=== PATIENT | male | born 1995 | race Two or more races ===

== ENCOUNTER 2025-01-27 17:17 | Emergency (ER) | payer OTHER, SELFPAY ==
--- NOTE | ~2025-01-27 | XR_ITS ---
CLINICAL HISTORY: left middle finger pain, fracture? 3 view left hand Comparison: None provided Findings: No fracture is seen on the AP and oblique view. On the lateral view, there is a possible small bony fragment seen at the base of a mid phalanx, likely to be the 4th digit. No significant arthritic change. No erosions. No radiopaque foreign body. IMPRESSION: On the lateral view, there is a possible small bony fragment of the base of a mid phalanx concerning for fracture, likely to be the 4th digit. Additional views of the digit is recommended. This document has been electronically signed by: Bhavna Brock MD on 01/27/2025 19:32:43
[2025-01-27 17:45] VITALS: BP 157/99; PULSE 84; RESP 16; TEMP 36.1; O2SAT 97; BMI 43.3
--- NOTE | 2025-01-27 17:47 | ED.EXTPRO ---
HPI - Extremity Problem General Chief complaint: Extremity Injury, Upper Stated complaint: Finger injury Time Seen by Provider: 01/27/25 20:09 Source: patient Mode of arrival: ambulatory Limitations: no limitations History of Present Illness ED Provider: [facility] We[facility] Narrative: 29 yold male presents to the ED for left ring finger pain since yesterday. Patient states while playing basketball yesterday he jammed his finger on all the ball. Patient denies any blunt trauma, falling to ground, head trauma, or any other trauma. Related Data Previous Rx's ?Medication ?Instructions ?Recorded naproxen 500 mg tablet 500 mg PO BID PRN pain #14 tabs 01/27/25 Allergies Allergy/AdvReac Type Severity Reaction Status Date / Time No Known Allergies (No Known Allergy Verified 01/27/25 17:47 Allergies*) Review of Systems Review of Systems: left ring finger pain Yes all other systems are reviewed and are negative Physical Exam Vital Signs: Vital Signs: Last Vital Signs Temp 97.0 F 01/27/25 17:45 Pulse 84 01/27/25 17:45 Resp 16 01/27/25 17:45 BP 157/99 H 01/27/25 17:45 Pulse Ox 97 01/27/25 17:45 O2 Del Method Room Air 01/27/25 17:45 BMI result Body Mass Index 43.3 Const: General: cooperative, healthy appearing, comfortable, no acute distress, well developed, alert, awake and Physically active Orientation/consciousness: patient oriented x3 HEENT: Head: Yes normal to inspection, Yes No palpable skull fracture present, Yes normocephalic, Yes atraumatic and No abrasion Eyes: General: appearance normal, both eyes and all related structures Neck: Neck: Yes normal visual inspection, Yes full ROM, Yes no lymphadenopathy, Yes no meningeal signs, Yes trachea midline, Yes supple, No anterior neck swelling and No tender Chest: Chest palpation & inspection: normal inspection of the chest and normal palpation of entire chest wall Resp: Effort & Inspection: normal respiratory effort and able to speak in complete sentences Auscultation: clear to auscultation bilaterally Cardio: Jugular venous distension: no JVD Heart sounds: S1 normal heart sound present and S2 normal heart sound present GI: Inspection: Yes normal to inspection Palpation (GI): Soft to palpation, not firm, nontender, no guarding and not rigid : General: Yes no CVA tenderness Back/Spine/Pelvis: Back: no CVA tenderness and No back tenderness Skin: General skin exam: no rashes or lesions noted, elasticity normal and turgor normal Neuro: General: patient oriented x3, gait normal, tone normal, moves all extremities, Normal light touch and pain sensation, no meningeal signs, no focal motor deficits and CN's II-XI intact bilaterally Extrem: General: Yes normal to inspection, Yes full ROM and Yes capillary refill normal Hand/finger images:  1. ecchymosis and slight swelling. negative for erythema, deformities, pus discharge, foul odor, or crepitus. rest of extremity is normal. Motor, neuro, and vascular exam is intact. Psych: Appearance: grossly normal, well kempt and not disheveled Course Course Course Narrative: RME: 29-year-old male presents to ED for left middle finger pain since yesterday. Patient was playing basketball then she jammed the finger. On exam patient is able to move the finger no obvious deformity. X-ray ordered. Medical Decision Making Medical Decision Making MDM Narrative: 29-year-old male presents to ED for left 4th finger injury while playing basketball yesterday. Patient denies any other trauma. Patient has complete range of motion of finger without any obvious deformity. Rest of extremity normal vascular motor neuro exam intact. X-ray shows possible may be 4th middle finger fracture. Patient is already in splint. Patient informed to keep splint on finger and given follow-up with hand surgery. Patient explained worrisome signs and informed to return to the ED immediately. Differential Diagnosis Differential Diagnoses: The differential diagnosis associated with the presentation includes (finger fracture) Admission/Observation Consideration of admission/observation: Escalation of care including admission/observation considered Independent Interpretation I performed an independent interpretation of an: Plain X-Ray Radiology Impression Discussion of test interpretation with radiology: I have reviewed the radiologist's reading. Independent Historian Clinical information obtained from an independent historian. History obtained from or confirmed by: Other (patient) Prescription Management I considered prescription management with: Pain Medication Discharge Plan Discharge Clinical Impression: Fracture of finger Patient Disposition: Home, Self-Care Instructions: Finger Fracture (ED) Additional Instructions: Your x-ray shows possible 4th finger middle phalanx fracture. Keep splint on until follow-up with hand surgeon. Return to the ED immediately for any swelling, redness, bluish black discoloration, numbness/tingling, hotness, coldness, or any other concerning symptoms. CLINICAL HISTORY: left middle finger pain, fracture? 3 view left hand Comparison: None provided Findings: No fracture is seen on the AP and oblique view. On the lateral view, there is a possible small bony fragment seen at the base of a mid phalanx, likely to be the 4th digit. No significant arthritic change. No erosions. No radiopaque foreign body. IMPRESSION: On the lateral view, there is a possible small bony fragment of the base of a mid phalanx concerning for fracture, likely to be the 4th digit. Additional views of the digit is recommended. This document has been electronically signed by: Bhavna Brock MD on 01/27/2025 19:32:43 Prescriptions: New naproxen 500 mg tablet 500 mg PO BID PRN (Reason: pain) Qty: 14 0RF Referrals: [facility] [Provider Group, Hand Surgery] - 2 days Referral Note: Possible left 4th middle phalanx fracture Clinical Impression: Fracture of finger Keith Christianson MD [Primary Care Provider, Internal Medicine] - 3 days Referral Note: Possible 4th middle finger fracture Clinical Impression: Fracture of finger Stand Alone Forms: Work/School Release Discharge Date/Time: 01/28/25 05:08 Print Language: Lithuanian
--- OUTSIDE RECORDS SUMMARY | 2025-01-27 20:18 | XMS_ITS | Clinical Summary ---
Author Organization [facility] [address] [place] [address] [place] [address] Phone Care Team Providers Care Machine Iii Coremaker Name Role Phone Keith Christianson MD Primary Care Provider [phone] Allergies No known active allergies Medications naproxen (NAPROSYN) 500 mg tablet Take 1 tablet (500 mg total) by mouth 2 (two) times a day with meals. 28 tablet 01/09/2025 Active Active Problems Problem Noted Date Diagnosed Date Allergic rhinitis 05/29/2006 Encounters Date Type Department Care Team Description 01/09/2025 8:30 AM EDT Office Visit Adult Medicine [address] [phone] Maricel Servin PA Adult general medical examination (Primary Dx); Benign paroxysmal positional vertigo of right ear; Left wrist pain; Erectile dysfunction, unspecified erectile dysfunction type; Vertigo from Last 3 Months Immunizations Name Administration Dates Next Due DTP 12/06/2001, 0,1997, 997,1997 [id number] (Pentacel) 2mo to less than 5yo 1997,1997,1997 Hepatitis B Pediatric (Enger ix B; Recombivax HB) to less than 20 yo 1997,1997,1997 MMR, measles mumps and rubel la Live (Priorix; M-M-R II) 12mo and older 12/06/2001,10/18/1998 OPV 12/06/2001, 0,1997, 997 Tdap Tetanus diptheria acell ular pertussis (Boostrix; Adacel) 7yo and older 03/26/2020 Varicella live (Varivax) 12m o and older 03/09/1998 Surgical History Surgery Date Site/Laterality Comments OTHER SURGICAL HISTORY PROCEDURE: HISTORICAL ARM SURGERY KNEE SURGERY PROCEDURE: HISTORICAL KNEE SURGERY Medical History Medical History Date Comments Allergic rhinitis, cause unspecified DX:Allergic rhinitis, cause unspecified Family History Medical History Relation Name Comments No Known Problems Brother 1 No Known Problems Brother 2 No Known Problems Brother 3 No Known Problems Father No Known Problems Maternal Grandfather Hyperlipidemia Maternal Grandmother Stroke Maternal Grandmother No Known Problems Mother No Known Problems Paternal Grandfather No Known Problems Paternal Grandmother No Known Problems Sister 1 No Known Problems Sister 2 No Known Problems Sister 3 Relation Name Status Comments Brother 1 Alive 2 brothers ages 25 and 20 lives with Dad, healthy Brother 2 Alive Brother 3 Alive Father Alive Maternal Grandfather Maternal Grandmother Alive Mother Alive Paternal Grandfather Paternal Grandmother Sister 1 Alive 1 older sister lives with Dad, healthy Sister 2 Alive 2 sisters ages 18 and 14, live with Mom, healthy Sister 3 Alive Social History Tobacco Use Types Packs/Day Years Used Date Smoking Tobacco: Never Smokeless Tobacco: Never Tobacco Cessation:Counseling Given: Not Answered Alcohol Use Standard Drinks/Week Comments No 0 (1 standard drink = 0.6 oz pur e alcohol) Food Risk Answer Date Recorded Within the past 12 months we worried whether our food would run out before we got money to buy more. Never true 01/02/2025 Within the past 12 months th e food we bought just didn't last and we didn't have money to get more. Never true 01/02/2025 Sex and Gender Information Value Date Recorded Sex Assigned at Male 01/02/2025 11:03 AM EDT Legal Sex Male 5:41 PM EST Gender Identity Male 01/02/2025 11:03 AM EDT Sexual Orientation Straight 01/02/2025 11 :03 AM EDT Obstetrics History Last Filed Vital Signs Vital Sign Reading Time Taken Comments Blood Pressure 132/83 01/09/2025 8:32 AM EDT Pulse 71 01/09/2025 8:32 AM EDT Temperature 36.7 C (98.1 F) 01/09/2025 8:32 AM EDT Respiratory Rate 14 01/09/2025 8:32 AM EDT Oxygen Saturation - - Inhaled Oxygen Concentration - - Weight 136 kg (299 lb) 01/09/2025 8:32 AM EDT Height 175.3 cm (5' 9 ) 01/09/2025 8:32 AM EDT Body Mass Index 44.15 01/09/2025 8:32 AM EDT Plan of Treatment Upcoming Encounters Date Type Department Care Team (Late st Contact Info) Description 01/12/2026 8:30 AM EDT Office Visit Adult Medicine [address] [phone] Keith Christianson MD [address] [place] [id number] Health Maintenance Due Date Last Done Comments COVID-19 Vaccine ( season) 2024 HIV Screening 06/17/2024 Influenza Vaccine (#1) 2025 8, 09/28/2016, 08/06/2015, Additional history exists Depression Screening 01/02/2026 01/02/2025 Social Influencers of Health Screening 01/02/2026 01/02/2025 Cholesterol Screening (Lipid Panel) 03/06/2029 03/06/2024, 03/06/2024 DTaP,Tdap,and Td Vaccines (9 - Td or Tdap) 03/26/2030 03/26/2020, 10/01/2017, 05/01/2008, Additional history exists Hepatitis B Vaccines Completed 1997, 1997, 1997 HIB Vaccines Completed 10/18/1998, 08/23, 1997, Additional history exists IPV Vaccines Completed 12/06/2001, 11/21, 1997, Additional history exists MMR Vaccines Completed 12/06/2001, 10/18/1998 Varicella Vaccines Completed 05/27/2010, 03/09/1998 Hepatitis A Vaccines Completed 06/12/2014, 06/06/20 13 HPV Vaccines Completed 12/16/2014, 07/24, 06/12/2014 Meningococcal ACWY Vaccine Completed 10/01, 06/06/2013, 05/01/2008 Hepatitis C Screening Completed 03/06/2024 Meningococcal B Vaccine Aged Out No l onger eligible based on patient's age to complete this topic Pneumococcal Vaccine: Pediatrics (0 to 5 Years) and At-Risk Patients (6 to 49 Years) Aged Out No longer eligible based on patient's age to complete this topic RSV Immunization Patients Under 20 months Aged Out No longer eligible based on patient's age to complete this topic Procedures Procedure Name Priority Date/Time Associated Diagnosis Comments HEPATITIS C SCREENING Routine 03/06/2024 LIPID PANEL Routine 03/06/2024 from Last 3 Months or Most Recently Relevant to Health Maintenance Results * Hepatitis C Screening (03/06/2024) Hepatitis C Screening abstracted Historical Provider HEALTH MAINTENANCE Final Result * (ABNORMAL) Lipid panel (03/06/2024) LDL/HDL Ratio 4 0 - 4 Triglycerides 97 0 - 150 mg/dL Cholesterol 141 0 - 200 mg/dL HDL 37(A) >=40 mg/dL LDL Cholesterol 85 0 - 100 mg/dL Blood Venous blood specimen / Unknown Historical Provider LAB BLOOD ORDERABLES Mireya l Result from Last 3 Months or Most Recently Relevant to Health Maintenance Insurance [employer] Care Teams Machine Iii Coremaker Relationship Specialty Start Date End Date Keith Christianson MD [address] [place] [id number] PCP - General 11/09/23
== END 2025-01-28 05:08 | disposition home or self-care (01) ==
PROVIDERS: Emergency Provider Internal Medicine; PCP Internal Medicine
DX: S62.603A Fracture of unspecified phalanx of left middle finger, initial encounter for closed fracture (principal); W21.05XA Struck by basketball, initial encounter; Y93.67 Activity, basketball; Y92.310 Basketball court as the place of occurrence of the external cause; Y99.8 Other external cause status
CPT/HCPCS: 73120; 99281; 99283

== ENCOUNTER → 2025-01-27 17:48 | Outpatient (BNV) | payer OTHER, SELFPAY | PROVIDERS: PCP Internal Medicine; Visit Provider Nuclear Medicine | DX: M79.645 Pain in left finger(s) (principal) | CPT/HCPCS: 73120 ==

== ENCOUNTER 2025-02-03 09:46 | Outpatient (AMB) | payer OTHER, SELFPAY ==
[2025-02-03 10:13] VITALS: BMI 43.3
--- NOTE | 2025-02-03 10:13 | A.OFFVIS_ITS ---
Vital Signs 02/03/25 10:13 Height 5 ft 9 in Weight 293 lb BMI 43.3 Intake Visit Reasons: FC - Left Ring Finger Fracture 01/26/25 Intake Note: Stas 29 yr old right hand dominant male,presents today for a fracture care visit for his left ring finger fracture from DOI 01/26/25. Patient states while playing basketball, he jammed his finger on all the ball. Seen at [facility] the following day where xrays were taken, fracture was confirmed and patient was splinted. Currently states he continues to wear his splint. He has been working on his ROM and is doing well. States he has mild pain when bending his finger. Denies numbness, tingling or locking of any finger. Allergies No Known Allergies (No Known Allergies*) Allergy (Verified 02/03/25 10:13) HPI HPI FC - Left Ring Finger Fracture 01/26/25: Details: Stas is a 29 year old right hand dominant man who presents for a left ring finger fracture, from a Basketbal injury, DOI: 01/26/25. He was seen in the ED on 01/27/25 and placed in a finger splint. He says he jammed his finger while playing Basketball. He says he is doing better within the last week. He complains of some pain in his finger, worse with motion. He has been wearing his splint as instructed. He denies any numbness or tingling. 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 Review of Systems Const All systems reviewed & are unremarkable except as noted in HPI and below Physical Exam Vital Signs: BMI result Body Mass Index 43.3 Const General: cooperative, healthy appearing and no acute distress Orientation/consciousness: patient oriented x3 HEENT Head: Yes normocephalic and Yes atraumatic Eyes EOM: EOMs intact bilaterally Resp Effort & Inspection: normal respiratory effort and able to speak in complete sentences Cardio Jugular venous distension: no JVD Skin General skin exam: turgor normal Rashes: no rashes Neuro General: patient oriented x3 Extrem Other: Evaluation of Left Upper Extremity: The patient is alert, oriented, and in no acute distress Sensation is normal to the tips of all digits Cap refill brisk ROM: He can bring his thumb, index, middle, and small fingers closed to a fist and all digits into full extension Mild hyperextension seen at the ring finger DIP joint Good active FDP tendon function No rotational or angular mal-alignment Skin: No lacerations or abrasions or evidence of open fracture General: Most tender over the middle phalanx volar base fracture site Mild swelling and resolving ecchymosis Radiographs: 3 views of the left hand were taken and viewed by me today in clinic. They show a ring finger middle phlalanx avulsion fracture of the volar base, minimally displaced Psych Appearance: grossly normal Affect: normal affect Attitude: cooperative Office Procedures AMB Fracture Care Details: Fracture care [id number] Fracture Billing Code: Fracture Billing Code Assessment & Plan Assessment & Plan (1) Fracture of phalanx of left ring finger: Code(s): S62.605A - Fracture of unspecified phalanx of left ring finger, initial encounter for closed fracture Category: Medical Plan Assessment & Plan: 1. Left ring finger middle phalanx avulsion fracture of volar base, From a Basketball injury, DOI: 01/26/25 I educated him about this condition I discussed operative and non-operative treatment options I recommend we manage this conservatively, and he is in agreement He will Toño-tape splinting of his middle & ring fingers I discussed activity modifications, he is to lift nothing heavier than a cellphone for the next 5 weeks. He is to avoid any falls or heavy impact activities, including ball sports, for the next 5-6 weeks He will perform gentle finger ROM exercises at home He will follow up in 4 weeks for a ROM check, No X-rays unless he has more pain or a new injury Scribed for Vero Randolph MD by Andrew Barker, manager medical writing, on 02/03/25 at 10:20 AM, EST. Orders: Orders XR hand LT min 3V Today M79.642 - Pain in left hand Medications: Discontinued naproxen Discontinued Reason: Patient Completed Course 500 mg PO BID PRN 14 tabs 0RF pain Coding Level of Care Code New Pt Level 3 (65782) Diagnoses Fracture of phalanx of left ring finger S62.605A CPT Codes Fracture Care - Fracture Billing Code: Fracture Billing Code ([id number])
--- OUTSIDE RECORDS SUMMARY | 2025-02-03 10:29 | XMS_ITS | Clinical Summary ---
Author Organization [facility] Address [address] [place] [phone] Phone Care Team Providers Care Compensation Agent Name Role Phone Unavailable Primary Care Provider Unavailabl e Immunizations Immunization Administration Dates Next Due DTaP 5 07/26/1999, 8,1997,04/22 HPV, Quadrivalent 12/16/2014,08/13/2014,06/12/20 14 Hep A, ped/adol 06/12/2014,06/06/2013 Hep B, ped/adol 1997,1997,1997 Hib (PRP-T) 10/18/1998, 8,1997,04/22 IPV 12/15/1999,1997,1997 Influenza Split Preservative Free ID 10/01/2017 Influenza, injectable, quadrivalent 08/06/2015 Influenza, injectable, quadr ivalent, preservative free 09/28/2016 Influenza, injectable, trivalent 06/12/2014 Influenza, injectable, triva lent, preservative free 05/31/2011,05/27/2010,05/01/2008 Influenza, intranasal, quadrivalent 06/06/2013 Influenza, intranasal, trivalent 06/05/2012 MMR 12/06/2001,10/18/1998 Meningococcal Conj (Menactra) MCV4P 10/01/2017,1 08/06/2012,05/01/2008 Td (adult) (Tenivac), 5 Lf t etanus toxoid, PF, adsorbed 10/01/2017 Tdap 05/01/2008 Varicella 05/27/2010,03/09/1998 Social History Tobacco Use Types Packs/Day Years Used Date Smoking Tobacco: Never Comments:Never Smoker Sex and Gender Information Value Date Recorded Sex Assigned at Not on file Legal Sex Male 6:17 PM EDT Gender Identity Not on file Sexual Orientation Not on file Last Filed Vital Signs Vital Sign Reading Time Taken Comments Blood Pressure - - Pulse 79 10/01/2017 4:41 PM EDT Temperature 36.5 C (97.7 F) 12/21/2014 2:34 PM EDT Respiratory Rate - - Oxygen Saturation 98% 10/01/2017 4:41 PM EDT Inhaled Oxygen Concentration - - Weight 110 kg (242 lb 8 oz) 10/01/2017 4:41 PM E DT Height 175.3 cm (5' 9 ) 10/01/2017 4:41 PM EDT Body Mass Index 35.81 10/01/2017 4:41 PM EDT Plan of Treatment Health Maintenance Due Date Last Done Comments COVID-19 Vaccine ( season) 2024 Influenza Vaccines (#1) 2025 10/02/19 18, 09/28/2016, 08/06/2015, Additional history exists DTaP,Tdap,and Td Vaccines (9 - Td or [...] HPV Vaccines Completed 12/16/2014, 07/24, 06/12/2014 Meningococcal Vaccine Completed 10/01/2017 , 06/06/2013, 05/01/2008 Men B Vaccine Aged Out No longer elig ible based on patient's age to complete this topic Pneumococcal Vaccine Aged Out No long er eligible based on patient's age to complete this topic
== END 2025-02-03 10:32 | disposition home or self-care (01) ==
LOC: HO.HOS 09:47
PROVIDERS: PCP Internal Medicine; Visit Provider Orthopaedic Surgery
DX: S62.605A Fracture of unspecified phalanx of left ring finger, initial encounter for closed fracture (principal)
CPT/HCPCS: 26740; 99203

== ENCOUNTER → 2025-02-03 09:49 | Outpatient (BNV) | payer OTHER, SELFPAY | PROVIDERS: Visit Provider Radiology Diagnostic Radiology | DX: S63.434A Traumatic rupture of volar plate of right ring finger at metacarpophalangeal and interphalangeal joint, initial encounter (principal) | CPT/HCPCS: 73130 ==

== ENCOUNTER 2025-02-03 10:46 | Outpatient (REF) | payer OTHER, SELFPAY ==
--- NOTE | ~2025-02-03 | XR_ITS ---
EXAMINATION: XR HAND, LEFT CLINICAL INFORMATION: M79.642 - Pain in left hand COMPARISON: 01/27/2025. TECHNIQUE: PA, lateral, and oblique views of the left hand. FINDINGS: There is a volar plate avulsion fracture of the PIP joint of the fourth digit, minimally displaced. This is only well seen on the lateral projection. No additional fractures or focal bony abnormalities. Normal alignment. Joint spaces well preserved. Carpal bones intact and normally aligned. Partially imaged intramedullary wires in the radius and ulna, diaphyseal level. No soft tissue abnormalities. XR/XR hand LT min 3V IMPRESSION: Volar plate avulsion fracture, PIP joint fourth digit. Electronically signed by: Adrian Rivera MD 02/03/2025 10:02 AM EDT
--- OUTSIDE RECORDS SUMMARY | 2025-02-04 11:30 | XMS_ITS | Clinical Summary ---
Author Organization [facility] Address [address] [place] [phone] Phone Care Team Providers Care Cafeteria Assistant Name Role Phone Unavailable Primary Care Provider [...]
== END 2025-02-03 10:47 | disposition home or self-care (01) ==
LOC: HO.HOSX 10:46
PROVIDERS: Visit Provider Orthopaedic Surgery
DX: S62.605A Fracture of unspecified phalanx of left ring finger, initial encounter for closed fracture (principal); W23.0XXA Caught, crushed, jammed, or pinched between moving objects, initial encounter; Y93.67 Activity, basketball; Y92.9 Unspecified place or not applicable; Y99.9 Unspecified external cause status
CPT/HCPCS: 26740; 73130

== ENCOUNTER 2025-03-03 10:29 | Outpatient (AMB) | payer OTHER, SELFPAY ==
--- NOTE | 2025-03-03 10:32 | A.OFFVIS_ITS ---
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 Last seen with Dr Randolph who advise patient to paddy-tape splinting of his middle & ring fingers, activity modifications, he is to lift nothing heavier than a cellphone for the next 5 weeks. He is to avoid any falls or heavy impact activities, including ball sports, for the next 5-6 weeks and he also perform gentle finger ROM exercises at home. Currently states he is doing well with his ROM, no pain just a little discomfort. Allergies No Known Allergies (No Known Allergies*) Allergy (Verified 03/03/25 10:35) HPI HPI O/V Left Ring Finger Fracture 01/26/25: Details: Stas is a 30 year old right hand dominant man who returns for his left ring finger fracture, from a Basketball injury, DOI: 01/26/25. He says he jammed his finger while playing Basketball. He says he is doing well and his pain has improved, just some generalized discomfort in his finger now. he has been working on his ROM exercises at home. He denies any numbness or tingling. 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 Physical Exam Vital Signs: BMI result Body Mass Index 43.3 Extrem Other: Evaluation of Left Upper Extremity: The patient is alert, oriented, and in no acute distress Sensation is normal to the tips of all digits Cap refill brisk ROM: He can bring his fingers closed to a fist and all digits into full extension No hyperextension seen at the ring finger DIP joint Good active FDP tendon function No rotational or angular mal-alignment General: No tenderness over the middle phalanx volar base fracture site Resolved swelling and ecchymosis Assessment & Plan Assessment & Plan (1) Fracture of phalanx of left ring finger: Code(s): S62.605A - Fracture of unspecified phalanx of left ring finger, initial encounter for closed fracture Category: Medical Plan Assessment & Plan: 1. Left ring finger middle phalanx avulsion fracture of volar base, From a Basketball injury, DOI: 01/26/25 I educated him about this condition This has been managed conservatively He will discontinue his splint at this time. He will continue to wear his paddy- tape while playing Basketball for the next 2 weeks I discussed activity modifications, he is to begin to use his hand for lightweight activities and slowly increase as tolerated over the next 4 weeks. He will perform finger ROM exercises at home He will follow up prn Scribed for Vero Randolph MD by Andrew Barker, registered medical transcriptionist, on 03/03/25 at 10:55 AM, EST. Coding Level of Care Code Global (89171) Diagnoses Fracture of phalanx of left ring finger S62.605A
[2025-03-03 10:33] VITALS: BMI 43.3
--- OUTSIDE RECORDS SUMMARY | 2025-03-03 11:32 | XMS_ITS | Clinical Summary ---
Author Organization [facility] Address [address] [place] [id number] Phone Care Team Providers Care Educational Sign Language Interpreter Name Role Phone Unavailable Primary Care Provider [...]
--- OUTSIDE RECORDS SUMMARY | 2025-03-03 11:33 | XMS_ITS | Clinical Summary ---
Author Organization [facility] [address] [place] [address] [place] [address] Phone Care Team Providers Care Capacitor Repairer Name Role Phone Keith Christianson MD Primary Care Provider [phone] Allergies No known active allergies Medications naproxen (NAPROSYN) 500 mg tablet Take 1 tablet (500 mg total) by mouth 2 (two) times a day with meals. 28 tablet 01/09/2025 Active Active Problems Problem Noted Date Diagnosed Date Allergic rhinitis 05/29/2006 Encounters Date Type Department Care Team Description 01/09/2025 8:30 AM EDT Office Visit Adult Medicine [address] [phone] Maricel Servin PA Adult general medical examination (Primary Dx); Benign paroxysmal positional vertigo of right ear; Left wrist pain; Erectile dysfunction, unspecified erectile dysfunction type; Vertigo from Last 3 Months Immunizations Name Administration Dates Next Due DTP 12/06/2001, 0,1997, 997,1997 [id number] (Pentacel) 2mo to less than 5yo 1997,1997,1997 [...] 8:30 AM EDT Office Visit Adult Medicine [address] [phone] Keith Christianson MD [address] [place] [phone] Health Maintenance Due Date Last Done Comments COVID-19 Vaccine ( season) 2024 HIV Screening 06/17/2024 Influenza Vaccine (#1) 2025 8, 09/28/2016, 08/06/2015, Additional history exists Social Influencers of Health Screening 01/02/2026 01/02/2025 [...] 06/06/2013, 05/01/2008 Hepatitis C Screening Completed 03/06/2024 Depression Screening Completed 01/02/2025 Meningococcal B Vaccine Aged Out No l [...] Procedure Name Priority Date/Time Associated Diagnosis Comments EXTERNAL XRAY REPORT 01/27/2025 EXTERNAL XRAY REPORT 01/27/2025 HEPATITIS C SCREENING Routine 03/06/2024 LIPID PANEL Routine 03/06/2024 from Last 3 Months or Most Recently Relevant to Health Maintenance Results * External Xray Report (01/27/2025) Only the most recent of2 resultswithin the time period is included. Anatomical Region Laterality Modality Radiographic Rochelle ging Provider [facility] XR PROCEDURES Final Result * Hepatitis C Screening (03/06/2024) Hepatitis C [...] Most Recently Relevant to Health Maintenance Insurance [employer] Care Teams Capacitor Repairer Relationship Specialty Start Date End Date Keith Christianson MD [address] [place] [address] [phone] PCP - General 11/09/23
== END 2025-03-03 11:09 | disposition home or self-care (01) ==
LOC: HO.HOS 10:30
PROVIDERS: PCP Internal Medicine; Visit Provider Orthopaedic Surgery
DX: S62.605A Fracture of unspecified phalanx of left ring finger, initial encounter for closed fracture (principal)
CPT/HCPCS: 99024